=== PATIENT | female | born 1995 | race Caucasian/White ===

== ENCOUNTER 2020-06-14 11:41 | Emergency (ER) | payer MEDICAID ==
[2020-06-14 15:56] LABS: SARS-CoV-2 PCR by NAA Not Detected (NotDetected)
== END 2020-06-14 14:05 | disposition home or self-care (01) ==
LOC: ERS 11:41
DX: J06.9 Acute upper respiratory infection, unspecified (principal); Z20.822 Contact with and (suspected) exposure to COVID-19
CPT/HCPCS: 71045; 87635; U0003; U0005